=== PATIENT | female | born 1980 | race Caucasian/White ===

== ENCOUNTER 2021-06-05 01:05 | Emergency (ER) | payer BC ==
[~2021-06-05 01:05] MED LIST: ZOFRAN ODT 4 MG4 MG PO
[2021-06-05 01:49] LABS: HEMOGLOBIN 14.4 gm/dl (12.3-15.3); RED BLOOD COUNT 4.58 M/UL (4.00-5.10); WHITE BLOOD COUNT 5.4 K/UL (4.5-11.0)
[2021-06-05 02:15] LABS: BUN/CREATININE RATIO 19 (0-10)
[2021-06-05] MEDS ORDERED: OMNICEF 300 MG300 MG PO (05:06)
[2021-06-05] MEDS ORDERED: BENTYL 20MG TAB20 MG PO (05:06)
[2021-06-05] MEDS ORDERED: ZOFRAN ODT 4 MG4 MG PO (05:06)
== END 2021-06-05 05:52 | disposition home or self-care (01) ==
LOC: ER1 01:05
PROVIDERS: Family Medicine
DX: J18.9 Pneumonia, unspecified organism (principal); R10.11 Right upper quadrant pain; R10.12 Left upper quadrant pain; R10.84 Generalized abdominal pain; R11.2 Nausea with vomiting, unspecified; R19.7 Diarrhea, unspecified
CPT/HCPCS: 80053; 81001; 82550; 82553; 83690; 84484; 84703; 85025; 93005; 96374; 96375; 99284; J0696; J2270; J2405; Q9967